=== PATIENT | male | born 1950 | race Caucasian/White ===

== ENCOUNTER → 2025-02-02 08:54 | Outpatient (CLI) | payer MEDICARE, BC, SELFPAY ==
--- NOTE | 2025-02-02 08:57 | DI.MRI.S_ITS ---
PROCEDURE: MR HIP LT WO CON INDICATIONS: pain in left hip TECHNIQUE: Noncontrast coronal T1 spin echo and STIR through the bony pelvis. Coronal and axial T2 fast spin echo with fat saturation, sagittal T1 spin echo, and oblique axial T2 fast spin echo with fat saturation through the hip. COMPARISON: None. FINDINGS: Image quality: Excellent. Bones and joints: Bone marrow of the pelvic ring and proximal femurs show normal signal throughout. No intraosseous lesions or fractures. No avascular necrosis of the femoral head. Mild degenerative changes at the pubic symphysis. Disc desiccation and facet hypertrophy are seen in the included spine. Tendons and ligaments: The gluteus medius and minimus tendons demonstrates moderate tendinosis distally without definite tearing. The proximal iliotibial band appears intact. The iliopsoas tendon appears intact, without adjacent bursal fluid collections. The origin of the hamstring tendon demonstrates moderate tendinosis. The tendons for the direct and indirect heads of the rectus femoris muscle appear intact. Labrum and cartilage: Moderate partial-thickness cartilage thinning and irregularity in the superior portion of the hip with subchondral cystic changes and marginal osteophytes. There is diffuse labral degeneration. Chronic degenerative tearing is seen posterior superiorly with small paralabral cysts measuring up to 7 mm. No significant joint effusion. Mild cam-type configuration of the femoral head/neck junction. Soft tissues: Mild edema within the distal left iliopsoas muscle without a significant bursal effusion or tendon tearing. Visualized muscles otherwise demonstrate normal bulk and internal signal. Quadratus femoris muscle demonstrates no internal edema to suggest ischiofemoral impingement. The proximal sciatic neurovascular bundle appears normal adjacent to the hamstring tendons. Prostate is mildly enlarged. Pelvic soft tissues demonstrate no acute abnormality. IMPRESSION: 1. 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 2. 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 3. Low-grade strain of the distal left iliopsoas muscle. 4. Moderate tendinosis of the distal left gluteus medius and minimus tendons and the proximal left hamstring tendon. 5. Mild degenerative changes in the pubic symphysis and lumbar spine. Approved by: Kieran Aly M.D. on 02/03/2025 at 8:24
== END ==
PROVIDERS: PCP Internal Medicine; Referring Provider Orthopaedic Surgery; Visit Provider Orthopaedic Surgery
DX: M16.12 Unilateral primary osteoarthritis, left hip (principal); M24.852 Other specific joint derangements of left hip, not elsewhere classified; M25.552 Pain in left hip; M94.252 Chondromalacia, left hip; S39.013A Strain of muscle, fascia and tendon of pelvis, initial encounter
CPT/HCPCS: 73721